=== PATIENT | male | born 1955 | race Caucasian/White ===

== ENCOUNTER 2018-07-14 20:48 | Emergency (ER) | payer MEDICARE, OTHER ==
--- NOTE | 2018-07-14 21:02 | ER Report ---
History and Physical Time Seen By MD: 21:02 HPI/ROS CHIEF COMPLAINT: Fever, sore throat HISTORY OF PRESENT ILLNESS: 63-year-old male with extensive past medical history , he's now been sick for approximately 36 hours. He notes onset of fever yesterday. He has a nephrostomy tube secondary to prostate cancer. Finished a course July 03 of Levaquin that was prescribed for infection. Patient's traveling from [place] back to his home in [place]. He's been on vacation. She notes no shortness of breath or productive cough. Patient denies dysuria. Patient does know severe sore throat so bad that he was unable to sleep last night. He's been having fever and chills. REVIEW OF SYSTEMS: Respiratory: No cough, no dyspnea. Cardiovascular: No chest pain, no palpitations. Gastrointestinal: No vomiting, no abdominal pain. Musculoskeletal: No back pain. Allergies: Coded Allergies: sulfamethoxazole (Verified Allergy, Unknown, 07/14/18) trimethoprim (Verified Allergy, Unknown, 07/14/18) Home Meds Active Scripts Ondansetron (ZOFRAN ODT) 4 Mg Tab.rapdis, 4 MG PO every 6 hours Y for NAUSEA/ VOMITING, #12 TAB TAKE 1 TABLET BY MOUTH EVERY 12 HOURS Prov:REX ISBELL DO 07/14/18 Hydrocodone Bit/Acetaminophen (NORCO 5-325 TABLET) 1 Each Tablet, 1 EACH PO Q4H Y for PAIN, #12 TAB Prov:REX ISBELL DO 07/14/18 Cefuroxime Axetil (CEFUROXIME) 500 Mg Tablet, 500 MG PO BID for infection, #20 TAB Prov:REX ISBELL DO 07/14/18 Reported Medications Acetaminophen (TYLENOL) 325 Mg Tablet, 325 MG PO, TAB 07/14/18 Omeprazole (OMEPRAZOLE) 20 Mg Tablet.dr, 20 MG PO BID, TAB 07/14/18 Finasteride (FINASTERIDE) 5 Mg Tablet, 5 MG PO QDAY 07/14/18 Gabapentin (GABAPENTIN) 300 Mg Capsule, 600 MG PO TID, CAPSULE 07/14/18 Tamsulosin Hcl (FLOMAX) 0.4 Mg Cap.er.24h, 0.4 MG PO, CAP 07/14/18 Reviewed Nurses Notes: Yes Old Medical Records Reviewed: Yes Constitutional Vital Sign - Last 24 Hours 07/14/18 07/14/18 07/14/18 07/14/18 20:48 21:02 21:09 21:18 Temp 99.7 Pulse ??? 102 100 Resp 17 B/P (MAP) 136/91 (106) 136/91 Pulse Ox 93 94 O2 Delivery Room Air 07/14/18 07/14/18 07/14/18 07/14/18 21:30 21:38 21:48 22:00 Pulse 95 B/P (MAP) 132/88 (103) 132/86 (101) Pulse Ox 92 O2 Flow Rate 2.0 07/14/18 07/14/18 07/14/18 07/14/18 22:13 22:18 22:30 22:44 Pulse 97 B/P (MAP) 132/86 (101) 127/84 (98) Pulse Ox 86 95 O2 Delivery Nasal Cannula O2 Flow Rate 2.5 07/14/18 07/14/18 07/14/18 07/14/18 22:44 22:48 23:00 23:05 Pulse 93 94 100 Resp 14 B/P (MAP) 125/87 (100) Pulse Ox 96 93 07/14/18 07/14/18 07/14/18 07/15/18 23:30 23:35 23:55 00:00 Pulse 94 95 Resp 14 B/P (MAP) 118/76 (90) 114/72 (86) Pulse Ox 97 07/15/18 07/15/18 07/15/18 00:05 00:30 00:35 Pulse 93 97 B/P (MAP) 95/58 (70) Pulse Ox 94 92 Physical Exam Vital signs stable, low-grade fever, pulse ox normal General Appearance: The patient is alert, has no immediate need for airway protection and no current signs of toxicity. Mild distress, skin warm and dry, hot to touch, appears mildly dehydrated HEENT: Pupils equal and round no injection. TMs normal, oropharynx with erythema and exudate. No tonsillar hypertrophy Respiratory: Chest is non tender, lungs are clear to auscultation. No wheezing or rails Cardiac: regular rate and rhythm, no murmur Gastrointestinal: Abdomen is soft and non tender, no masses, bowel sounds normal. Musculoskeletal: Neck: Neck is supple and non tender. No meningismus, no lymphadenopathy Extremities have full range of motion and are non tender. No edema, no calf tenderness Skin: No rashes or lesions. DIFFERENTIAL DIAGNOSIS: After history and physical exam differential diagnosis was considered for adult fever including but not limited to viral syndromes including influenza, urinary tract infection, pharyngitis pneumonia and sepsis. Medical Decision Making Data Points Result Diagram: 07/14/18213707/14/182137 Laboratory Hematology Test 07/14/18 20:57 07/14/18 21:38 Urine Color Yellow Urine Clarity Clear Urine pH 7.0 pH (4.8-9.5) Urine Specific [place] 1.018 Urine Protein Negative mg/dL (NEGATIVE) Urine Glucose (UA) Negative mg/dL (NEGATIVE) Urine Ketones Trace mg/dL (NEGATIVE) Urine Blood Negative (NEGATIVE) Urine Nitrite Negative (NEGATIVE) Urine Bilirubin Negative (NEGATIVE) Urine Urobilinogen 2.0 mg/dL (0.2-1.9) Urine Leukocyte Esterase Negative (NEGATIVE) Urine RBC 1 /HPF (0-2/HPF) Urine WBC 11 /HPF (0-5/HPF) Urine Squamous Epithelial Cells None /LPF (</=FEW) Urine Bacteria Negative /HPF (NONE-FEW) Urine Mucus Few /HPF (NONE-FEW) Red Blood Count 4.56 M/uL (4.00-5.60) Mean Corpuscular Volume 89.2 fL (80.0-96.0) Mean Corpuscular Hemoglobin 32.4 pg (26.0-33.0) Mean Corpuscular Hemoglobin Concent 36.3 g/dL (32.0-36.0) Red Cell Distribution Width 13.7 % (11.5-14.5) Mean Platelet Volume 8.4 fL (7.2-11.1) Neutrophils (%) (Auto) 89.6 % (39.4-72.5) Lymphocytes (%) (Auto) 3.9 % (17.6-49.6) Monocytes (%) (Auto) 5.9 % (4.1-12.4) Eosinophils (%) (Auto) 0.1 % (0.4-6.7) Basophils (%) (Auto) 0.5 % (0.3-1.4) Nucleated RBC Relative Count (auto) 0.1 /100WBC Neutrophils # (Auto) 12.8 K/uL (2.0-7.4) Lymphocytes # (Auto) 0.6 K/uL (1.3-3.6) Monocytes # (Auto) 0.8 K/uL (0.3-1.0) Eosinophils # (Auto) 0.0 K/uL (0.0-0.5) Basophils # (Auto) 0.1 K/uL (0.0-0.1) Nucleated RBC Absolute Count (auto) 0.01 K/uL Erythrocyte Sedimentation Rate 26 mm/HOUR (0-20) Sodium Level 135 mmol/L (137-145) Potassium Level 4.1 mmol/L (3.5-5.0) Chloride Level 101 mmol/L (98-107) Carbon Dioxide Level 25 mmol/L (22-30) Blood Urea Nitrogen 11 mg/dl (9-21) Creatinine 0.80 mg/dl (0.66-1.25) Glomerular Filtration Rate Calc > 60.0 Random Glucose 157 mg/dl (75-110) Lactate 1.1 mmol/L (0.7-2.1) Calcium Level 8.9 mg/dl (8.4-10.2) Total Bilirubin 0.7 mg/dl (0.2-1.3) Aspartate Amino Transf (AST/SGOT) 23 U/L (0-35) Alanine Aminotransferase (ALT/SGPT) 19 U/L (0-56) Alkaline Phosphatase 80 U/L (0-126) Troponin I < 0.012 ng/ml C-Reactive Protein 8.4 mg/dl (<1.0) Total Protein 7.2 g/dl (6.3-8.2) Albumin 4.0 g/dl (3.5-5.0) Monoscreen Negative (NEGATIVE) Group A Streptococcus Screen Positive (NEGATIVE) Chemistry Test 07/14/18 20:57 07/14/18 21:38 Urine Color Yellow Urine Clarity Clear Urine pH 7.0 pH (4.8-9.5) Urine Specific [place] 1.018 Urine Protein Negative mg/dL (NEGATIVE) Urine Glucose (UA) Negative mg/dL (NEGATIVE) Urine Ketones Trace mg/dL (NEGATIVE) Urine Blood Negative (NEGATIVE) Urine Nitrite Negative (NEGATIVE) Urine Bilirubin Negative (NEGATIVE) Urine Urobilinogen 2.0 mg/dL (0.2-1.9) Urine Leukocyte Esterase Negative (NEGATIVE) Urine RBC 1 /HPF (0-2/HPF) Urine WBC 11 /HPF (0-5/HPF) Urine Squamous Epithelial Cells None /LPF (</=FEW) Urine Bacteria Negative /HPF (NONE-FEW) Urine Mucus Few /HPF (NONE-FEW) White Blood Count 14.3 k/uL (4.5-11.0) Red Blood Count 4.56 M/uL (4.00-5.60) Hemoglobin 14.8 g/dL (14.0-18.0) Hematocrit 40.7 % (42.0-52.0) Mean Corpuscular Volume 89.2 fL (80.0-96.0) Mean Corpuscular Hemoglobin 32.4 pg (26.0-33.0) Mean Corpuscular Hemoglobin Concent 36.3 g/dL (32.0-36.0) Red Cell Distribution Width 13.7 % (11.5-14.5) Platelet Count 303 K/uL (150-450) Mean Platelet Volume 8.4 fL (7.2-11.1) Neutrophils (%) (Auto) 89.6 % (39.4-72.5) Lymphocytes (%) (Auto) 3.9 % (17.6-49.6) Monocytes (%) (Auto) 5.9 % (4.1-12.4) Eosinophils (%) (Auto) 0.1 % (0.4-6.7) Basophils (%) (Auto) 0.5 % (0.3-1.4) Nucleated RBC Relative Count (auto) 0.1 /100WBC Neutrophils # (Auto) 12.8 K/uL (2.0-7.4) Lymphocytes # (Auto) 0.6 K/uL (1.3-3.6) Monocytes # (Auto) 0.8 K/uL (0.3-1.0) Eosinophils # (Auto) 0.0 K/uL (0.0-0.5) Basophils # (Auto) 0.1 K/uL (0.0-0.1) Nucleated RBC Absolute Count (auto) 0.01 K/uL Erythrocyte Sedimentation Rate 26 mm/HOUR (0-20) Glomerular Filtration Rate Calc > 60.0 Lactate 1.1 mmol/L (0.7-2.1) Calcium Level 8.9 mg/dl (8.4-10.2) Total Bilirubin 0.7 mg/dl (0.2-1.3) Aspartate Amino Transf (AST/SGOT) 23 U/L (0-35) Alanine Aminotransferase (ALT/SGPT) 19 U/L (0-56) Alkaline Phosphatase 80 U/L (0-126) Troponin I < 0.012 ng/ml C-Reactive Protein 8.4 mg/dl (<1.0) Total Protein 7.2 g/dl (6.3-8.2) Albumin 4.0 g/dl (3.5-5.0) Monoscreen Negative (NEGATIVE) Group A Streptococcus Screen Positive (NEGATIVE) Urinalysis Test 07/14/18 20:57 Urine Color Yellow Urine Clarity Clear Urine pH 7.0 pH (4.8-9.5) Urine Specific [place] 1.018 Urine Protein Negative mg/dL (NEGATIVE) Urine Glucose (UA) Negative mg/dL (NEGATIVE) Urine Ketones Trace mg/dL (NEGATIVE) Urine Blood Negative (NEGATIVE) Urine Nitrite Negative (NEGATIVE) Urine Bilirubin Negative (NEGATIVE) Urine Urobilinogen 2.0 mg/dL (0.2-1.9) Urine Leukocyte Esterase Negative (NEGATIVE) Urine RBC 1 /HPF (0-2/HPF) Urine WBC 11 /HPF (0-5/HPF) Urine Squamous Epithelial Cells None /LPF (</=FEW) Urine Bacteria Negative /HPF (NONE-FEW) Urine Mucus Few /HPF (NONE-FEW) EKG/Imaging EKG Interpretation 12 lead EK Rhythm: normal sinus rhythm [place]: Left axis deviation QRS: normal ST segments: normal, no evidence of ischemia or dysrhythmia ED Course/Re-evaluation Clinical Indication for ER IV: Hydration, IV Access ED Course Patient was admitted to an examination room. H&P was done. The differential diagnoses was considered. On clinical examination. Patient has exudative pharyngitis. Diagnostic studies are ordered. His white blood cell count is elevated at 14,000 with a left shift. His rapid strep swab returns positive. He does have some white cells in his urine. This x-ray is clear. Patient's treated with IV Zofran for his vomiting and fluid hydration. She's medicated with Toradol and fentanyl. He is given 1 g of Rocephin. Blood cultures are pending. His lactate was unremarkable for evidence of sepsis. Patient will be discharged home on Ceftin antibiotic. He is also given Zofran for nausea control and [place] for pain relief. He's advised ibuprofen 600 mg 3 times a day for fever control. Patient's advised to follow-up with his primary care doctor upon returning home to [place]. Decision to Disposition Date: Jul 14, 2018 Decision to Disposition Time: 22:31 Depart Departure Latest Vital Signs Vital Signs Date Time Temp Pulse Resp B/P (MAP) Pulse Ox O2 Delivery O2 Flow Rate FiO2 07/15/18 00:35 97 92 07/15/18 00:30 95/58 (70) 07/14/18 23:55 14 07/14/18 22:44 Nasal Cannula 2.5 07/14/18 21:09 99.7 Impression: Primary Impression: Streptococcal pharyngitis Additional Impression: Vomiting Condition: Improved Disposition: HOME OR SELF-CARE New Scripts Ondansetron (ZOFRAN ODT) 4 Mg Tab.rapdis 4 MG PO every 6 hours Y for NAUSEA/VOMITING, #12 TAB TAKE 1 TABLET BY MOUTH EVERY 12 HOURS Prov: REX ISBELL DO 07/14/18 Hydrocodone Bit/Acetaminophen (NORCO 5-325 TABLET) 1 Each Tablet 1 EACH PO Q4H Y for PAIN, #12 TAB Prov: REX ISBELL DO 07/14/18 Cefuroxime Axetil (CEFUROXIME) 500 Mg Tablet 500 MG PO BID for infection, #20 TAB Prov: REX ISBELL DO 07/14/18 Patient Instructions: Strep Throat (ED) Additional Instructions: Drink plenty of fluids Use Zofran to control vomiting Use ibuprofen for pain and fever control Use [place]/hydrocodone for severe pain relief and to help her sleep Finished all of your antibiotic Follow-up with your primary care doctor upon returning home to [place] Go to the nearest ER for any worsening Problem Qualifiers Additional Impression: Vomiting Vomiting type: unspecified Vomiting Intractability: intractable Nausea presence: with nausea Qualified Codes: R11.2 - Nausea with vomiting, unspecified REX ISBELL DO Jul 14, 2018 21:02
[2018-07-14] MEDS ORDERED: ACETAMINOPHEN 325 MG TAB PO ONE (21:15)
[2018-07-14] MEDS ORDERED: NS(*) 0.9% 1000 ML BAG 1,000 ML IV ONE (21:15)
[2018-07-14] MEDS ORDERED: GABA-549 PO (21:21)
[2018-07-14] MEDS ORDERED: TAMS0.4C25 PO (21:21)
[2018-07-14] MEDS ORDERED: FINA5TAB67 PO (21:21)
[2018-07-14] MEDS ORDERED: ACET-1966 PO (21:21)
[2018-07-14] MEDS ORDERED: OMEP-137 PO (21:21)
[2018-07-14] MEDS ORDERED: ONDANSETRON 4 MG/2 ML VIAL ONE (21:30)
--- NOTE | 2018-07-14 21:33 | EKG ---
FAC[facility]: [facility] PATIENT NAME: CAMDEN CATHERINE : [id number] MR: [id number] V: [id number] EXAM DATE: ORDERING PHYSICIAN: REX ISBELL TECHNOLOGIST: OZZY Groves Reason : Blood Pressure : / mmHG Vent. Rate : 090 BPM Atrial Rate : 090 BPM P-R Int : 152 ms QRS Dur : 110 ms QT Int : 354 ms P-R-T Axes : 033 -31 030 degrees QTc Int : 433 ms Sinus rhythm Nonspecific interventricular conduction delay Left axis deviation Abnormal ECG No previous ECGs available Confirmed by LEONARD PRO ([id number] on 07/15/2018 6:18:46 AM Referred By: Confirmed By:LEONARD PRO
[2018-07-14 21:59] LABS: PLATELET COUNT, AUTOMATED 303 K/uL (150-450)
[2018-07-14] MEDS ORDERED: cefTRIAXone 1 GM VIAL IVP ONE (22:20)
[2018-07-14] MEDS ORDERED: ONDA4TAB PO (22:33)
[2018-07-14] MEDS ORDERED: HYDR-4309 PO (22:33)
[2018-07-14] MEDS ORDERED: CEFU500T10 PO (22:33)
[2018-07-14] MEDS ORDERED: ONDANSETRON 4 MG ODT TH SL ONE (22:40)
[2018-07-14] MEDS ORDERED: fentaNYL CITR 100 MCG/2 ML AMP IVP ONE (22:40)
[2018-07-14] MEDS ORDERED: ACET/HYDROC 5/325MG TH ER ONLY 2 TAB/BOTTLE PO ONE (22:40)
[2018-07-14] MEDS ORDERED: KETOROLAC 30 MG/ML VIAL IVP ONE (22:40)
--- NOTE | 2018-07-14 22:57 | RADIOLOGY IMAGING REPORT ---
FAC[facility] PATIENT NAME: Cristi Toledo : 1955 MR: [id number] V: [id number] EXAM DATE: ORDERING PHYSICIAN: REX ISBELL TECHNOLOGIST: Location: [facility] [place] Patient: Cristi Toledo : 1955 Visit/Account:[id number] Date of Sevice: 07/14/2018 EXAMINATION: Chest 2 Views HISTORY: Fever. COMPARISON: None. FINDINGS: The lungs are clear. No focal consolidation or pleural fluid. No pneumothorax. Normal cardiomedias tinal silhouette, with normal heart size and pulmonary vascularity. Visualized osseous structures ar e unremarkable. IMPRESSION: No evidence of acute cardiopulmonary disease. Report Dictated By: Andrea Hagan MD at 07/14/2018 10:49 PM Report E-Signed By: Andrea Hagan MD at 07/14/2018 10:53 PM WSN:[id number]
[2018-07-14] MEDS ORDERED: ALBUTEROL/IPRATROPIUM 3 ML NEB NEB ONE (23:30)
[2018-07-15 00:30] VITALS: BP 95/58
== END 2018-07-15 00:41 | disposition home or self-care (01) ==
LOC: ER 21:20
DX: J02.0 Streptococcal pharyngitis (principal); R11.2 Nausea with vomiting, unspecified; R94.31 Abnormal electrocardiogram [ECG] [EKG]
CPT/HCPCS: 36415; 71046; 81001; 83605; 84484; 85025; 85651; 86140; 86308; 87040; 87081; 87880; 93005; 94640; 96374; 96375; 99284; A9270; J0696; J1885; J2405; J3010; J7030; J7620; Q0162; 82040; 82247; 82310; 82374; 82435; 82565; 82947; 84075; 84132; 84155; 84295; 84450; 84460; 84520; S0119